=== PATIENT | female | born 1990 | race Caucasian/White ===

== ENCOUNTER → 2024-02-02 07:21 | Outpatient (REF) | payer BC, SELFPAY | LOC: PNTC 07:21 | PROVIDERS: ATTENDING PHYSICIAN Obstetrics & Gynecology | DX: O09.819 Supervision of pregnancy resulting from assisted reproductive technology, unspecified trimester (principal) | CPT/HCPCS: 76811 ==

== ENCOUNTER → 2024-02-16 10:27 | Outpatient (REF) | payer BC, SELFPAY | LOC: PNTC 10:27 | PROVIDERS: ATTENDING PHYSICIAN Obstetrics & Gynecology | DX: O99.210 Obesity complicating pregnancy, unspecified trimester (principal); O09.819 Supervision of pregnancy resulting from assisted reproductive technology, unspecified trimester; O35.5XX0 Maternal care for (suspected) damage to fetus by drugs, not applicable or unspecified | CPT/HCPCS: 76815 ==

== ENCOUNTER → 2024-02-24 09:40 | Outpatient (REF) | payer BC, SELFPAY ==
[2024-02-24 11:47] LABS: % Basophils 0.4 % (0-2); % Eosinophils 0.9 % (0-6); % Immature Granulocytes 0.3 % (0-0.5); % Lymphocytes 21.5 % (20.5-51.1); % Monocytes 3.6 % (1.7-9.3); % Neutrophils 73.3 % (42.2-75.2); Absolute Eosinophils 0.1 10^3/uL (0-0.7); Absolute Lymphocytes 2.1 10^3/uL (1.2-3.4); Absolute Monocytes 0.4 10^3/uL (0.1-0.6); Absolute Neutrophils 7.1 10^3/uL (1.4-6.5); Hematocrit 35.1 % (37.0-47.0); Mean Corp Hgb Conc. 34.2 g/dL (33.0-37.0); Mean Corpuscular Hgb 29.6 pg (27.0-31.0); Mean Corpuscular Volume 86.5 fL (81.0-99.0); Mean Platelet Volume 11.4 fL (7.4-10.4); Nucleated Red Blood Cells % 0 %; Platelet Count 220 10^3/uL (130-400); Red Blood Cell Count 4.06 10^6/uL (4.20-5.40); Red Cell Dist. Width 12.8 % (11.5-14.5); White Blood Cell Count 9.7 10^3/uL (4.8-10.8)
[2024-02-24 11:58] LABS: ALT (SGPT) 12 U/L (0-35); AST (SGOT) 18 U/L (14-36); Albumin 3.4 g/dl (3.5-5.0); Alkaline Phosphatase 79 U/L (38-126); Blood Urea Nitrogen 8 mg/dl (7-17); Calcium 9.4 mg/dl (8.4-10.2); Carbon Dioxide 23 mmol/L (22-30); Chloride 103 mmol/L (98-107); Glucose 106 mg/dl (70-99); HDL Cholesterol 93 mg/dl; LDL Cholesterol, Calculated 93 mg/dl; Sodium 133 mmol/L (135-145); Total Bilirubin 0.3 mg/dl (0.2-1.3); Total Cholesterol 218 mg/dl (50-199); Total Protein 6.1 g/dl (6.3-8.2); Triglyceride 161 mg/dl (10-149); Very Low Density Lipoprotein 32 mg/dl (0-30); eGFR > 60.00
[2024-02-24 12:24] LABS: Rubella Negative
[2024-02-24 12:28] LABS: Hepatitis B Surface Antigen Negative (Negative); TSH Reflex To Free T4 0.58 uIU/ml (0.47-4.68)
[2024-02-24 12:45] LABS: Hepatitis C Antibody Negative (Negative)
[2024-02-24 16:40] LABS: Syphilis/T. pallidum Ab Reflex Negative (Negative)
[2024-02-24 16:41] LABS: HIV Combo Negative (Negative)
== END ==
LOC: HWLAB 09:40
PROVIDERS: ATTENDING PHYSICIAN Obstetrics & Gynecology; FAMILY PHYSICIAN Physician Assistant
DX: Z34.90 Encounter for supervision of normal pregnancy, unspecified, unspecified trimester (principal); Z3A.18 18 weeks gestation of pregnancy; Z13.29 Encounter for screening for other suspected endocrine disorder; E66.09 Other obesity due to excess calories; F41.1 Generalized anxiety disorder; R73.01 Impaired fasting glucose
CPT/HCPCS: 36415; 80053; 80061; 84443; 85025; 86762; 86780; 86803; 87086; 87340; 87389

== ENCOUNTER → 2024-03-22 09:39 | Outpatient (REF) | payer BC, SELFPAY | LOC: CPAP 09:39 | PROVIDERS: ATTENDING PHYSICIAN Obstetrics & Gynecology | DX: Z34.90 Encounter for supervision of normal pregnancy, unspecified, unspecified trimester (principal) | CPT/HCPCS: 87491; 87591 ==

== ENCOUNTER → 2024-03-23 09:46 | Outpatient (REF) | payer BC, SELFPAY ==
[2024-03-23 12:14] LABS: 1 Hour after 50gm 91 mg/dl
== END ==
LOC: HWLAB 09:46
PROVIDERS: ATTENDING PHYSICIAN Obstetrics & Gynecology; FAMILY PHYSICIAN Physician Assistant Medical
DX: Z34.90 Encounter for supervision of normal pregnancy, unspecified, unspecified trimester (principal)
CPT/HCPCS: 36415; 82950

== ENCOUNTER → 2024-03-30 10:28 | Outpatient (REF) | payer BC, SELFPAY | LOC: PNTC 10:28 | PROVIDERS: ATTENDING PHYSICIAN Obstetrics & Gynecology | DX: O99.210 Obesity complicating pregnancy, unspecified trimester (principal) | CPT/HCPCS: 36415; 76816; 86850; 86900; 86901; J2790 ==

== ENCOUNTER → 2024-04-26 08:19 | Outpatient (REF) | payer BC, SELFPAY | LOC: PNTC 08:19 | PROVIDERS: ATTENDING PHYSICIAN Obstetrics & Gynecology | DX: O99.212 Obesity complicating pregnancy, second trimester (principal); O09.819 Supervision of pregnancy resulting from assisted reproductive technology, unspecified trimester; O99.320 Drug use complicating pregnancy, unspecified trimester | CPT/HCPCS: 76816 ==

== ENCOUNTER → 2024-05-10 08:55 | Outpatient (REF) | payer BC, SELFPAY | LOC: PNTC 08:55 | PROVIDERS: ATTENDING PHYSICIAN Obstetrics & Gynecology | DX: O99.210 Obesity complicating pregnancy, unspecified trimester (principal) | CPT/HCPCS: 59025; 76815 ==

== ENCOUNTER → 2024-05-17 07:59 | Outpatient (REF) | payer BC, SELFPAY | LOC: PNTC 07:59 | PROVIDERS: ATTENDING PHYSICIAN Obstetrics & Gynecology | DX: O99.210 Obesity complicating pregnancy, unspecified trimester (principal) | CPT/HCPCS: 59025; 76815 ==

== ENCOUNTER → 2024-05-24 08:31 | Outpatient (REF) | payer BC, SELFPAY | LOC: PNTC 08:31 | PROVIDERS: ATTENDING PHYSICIAN Obstetrics & Gynecology | DX: O09.529 Supervision of elderly multigravida, unspecified trimester (principal); O09.819 Supervision of pregnancy resulting from assisted reproductive technology, unspecified trimester; O35.5XX0 Maternal care for (suspected) damage to fetus by drugs, not applicable or unspecified | CPT/HCPCS: 59025; 76816 ==

== ENCOUNTER → 2024-05-31 08:21 | Outpatient (REF) | payer BC, SELFPAY | LOC: PNTC 08:21 | PROVIDERS: ATTENDING PHYSICIAN Obstetrics & Gynecology | DX: O99.210 Obesity complicating pregnancy, unspecified trimester (principal); O09.819 Supervision of pregnancy resulting from assisted reproductive technology, unspecified trimester; O99.320 Drug use complicating pregnancy, unspecified trimester | CPT/HCPCS: 59025; 76815 ==

== ENCOUNTER → 2024-06-07 08:22 | Outpatient (REF) | payer BC, SELFPAY | LOC: PNTC 08:22 | PROVIDERS: ATTENDING PHYSICIAN Obstetrics & Gynecology | DX: O99.210 Obesity complicating pregnancy, unspecified trimester (principal); O09.819 Supervision of pregnancy resulting from assisted reproductive technology, unspecified trimester; O99.320 Drug use complicating pregnancy, unspecified trimester | CPT/HCPCS: 59025; 76815 ==

== ENCOUNTER 2024-06-14 07:11 | Inpatient (IN) | payer BC, SELFPAY ==
[2024-06-14 07:14] VITALS: BP 121/59; BMI 45.4
[2024-06-14] MEDS: ANCEF 10 IV (08:16)
[2024-06-14] MEDS: LR 1000 IV ×2 (08:16→22:06)
[2024-06-14 08:28] LABS: % Basophils 0.2 % (0-2); % Eosinophils 0.4 % (0-6); % Immature Granulocytes 0.3 % (0-0.5); % Lymphocytes 20.5 % (20.5-51.1); % Monocytes 4.5 % (1.7-9.3); % Neutrophils 74.1 % (42.2-75.2); Absolute Monocytes 0.4 10^3/uL (0.1-0.6); Hematocrit 32.5 % (37.0-47.0); Hemoglobin 11.4 g/dL (12.0-16.0); Mean Corp Hgb Conc. 35.1 g/dL (33.0-37.0); Mean Corpuscular Hgb 28.7 pg (27.0-31.0); Mean Corpuscular Volume 81.9 fL (81.0-99.0); Mean Platelet Volume 12.5 fL (7.4-10.4); Nucleated Red Blood Cells % 0 %; Platelet Count 166 10^3/uL (130-400); Red Blood Cell Count 3.97 10^6/uL (4.20-5.40); Red Cell Dist. Width 13.1 % (11.5-14.5); White Blood Cell Count 9.5 10^3/uL (4.8-10.8)
[2024-06-14] MEDS: PITOCIN 30 UNITS/NSS 500 ML IV (09:58)
[2024-06-14] MEDS: TUMS 2 TABLET PO ×2 (15:54→20:34)
[2024-06-14] MEDS: ANCEF 5 IV (16:00)
[2024-06-14] MEDS: SUBLIMAZE 100 MCG EPIDURAL (21:33)
[2024-06-14] MEDS: FENTANYL/BUPIVACAINE 100 EPIDURAL (21:33)
[2024-06-14] MEDS: ZOLOFT 50 MG PO (23:21)
[2024-06-15] MEDS: ANCEF 5 IV ×3 (00:04→15:59)
[2024-06-15] MEDS: TUMS 2 TABLET PO ×2 (00:15→15:24)
[2024-06-15] MEDS: LR 1000 IV ×2 (04:10→15:24)
[2024-06-15] MEDS: FENTANYL/BUPIVACAINE 100 EPIDURAL ×3 (05:28→20:08)
[2024-06-15] MEDS: METHERGINE INJECTION 0.2 MG IM (21:23)
[2024-06-15] MEDS: ZOLOFT 50 MG PO (22:30)
[2024-06-16] MEDS: MOTRIN 600 MG PO ×4 (00:35→20:50)
[2024-06-16 05:46] LABS: Hematocrit 27.7 % (37.0-47.0); Hemoglobin 9.7 g/dL (12.0-16.0)
[2024-06-16] MEDS: TYLENOL 650 MG PO ×3 (09:23→20:51)
[2024-06-16] MEDS: PRENATAL PLUS 1 TABLET PO (09:29)
[2024-06-16] MEDS: SENOKOT-S 1 TABLET PO (09:29)
[2024-06-16] MEDS: HYPERRHO S-D 1500 UNIT IM (15:09)
[2024-06-16] MEDS: ZOLOFT 50 MG PO (20:50)
[2024-06-17] MEDS: TYLENOL 650 MG PO (05:15)
[2024-06-17] MEDS: MOTRIN 600 MG PO (05:15)
[2024-06-17] MEDS: FEOSOL 325 MG PO (08:00)
[2024-06-17] MEDS: PRENATAL PLUS 1 TABLET PO (08:00)
[2024-06-18 12:09] LABS: Syphilis/T. pallidum Ab Reflex Negative (Negative)
== END 2024-06-17 10:19 | disposition home or self-care (01) | DRG 807 ==
LOC: LDRP 07:11
PROVIDERS: Obstetrics & Gynecology; ADMITTING PHYSICIAN Obstetrics & Gynecology; FAMILY PHYSICIAN Physician Assistant Medical
PROC: 3E033VJ Introduction of Other Hormone into Peripheral Vein, Percutaneous Approach (ICD-10-PCS; 2024-06-14)
PROC: 0UQMXZZ Repair Vulva, External Approach (ICD-10-PCS; 2024-06-14)
PROC: 0HQ9XZZ Repair Perineum Skin, External Approach (ICD-10-PCS; 2024-06-14)
PROC: 10H073Z Insertion of Monitoring Electrode into Products of Conception, Via Natural or Artificial Opening (ICD-10-PCS; 2024-06-14)
PROC: 10E0XZZ Delivery of Products of Conception, External Approach (ICD-10-PCS; 2024-06-14)
DX: O70.0 First degree perineal laceration during delivery (principal); Z37.0 Single live birth; O99.824 Streptococcus B carrier state complicating childbirth; O99.02 Anemia complicating childbirth; Z3A.39 39 weeks gestation of pregnancy; Z88.0 Allergy status to penicillin
CPT/HCPCS: 88307; 85014; 85018; 85025; 85461; 86780; 86850; 86900; 86901; J2790

== ENCOUNTER → 2024-06-22 12:04 | Outpatient (REF) | payer BC, SELFPAY ==
[2024-06-22 15:38] LABS: Urine Albumin Negative (Neg - Trace); Urine Bilirubin Negative (Negative); Urine Character Clear (Clear); Urine Color Yellow; Urine Glucose Negative (Negative); Urine Ketone Negative (Negative); Urine Leukocyte 1+ (Negative); Urine Nitrite Negative (Negative); Urine Occult Blood 4+ (Negative); Urine Urobilinogen Negative (Neg - 1+)
[2024-06-22 15:51] LABS: Urine Mucus Many
[2024-06-22 15:52] LABS: Urine Bacteria Many (Negative)
== END ==
LOC: HWLAB 12:04
PROVIDERS: ATTENDING PHYSICIAN Obstetrics & Gynecology; FAMILY PHYSICIAN Physician Assistant Medical
DX: N30.00 Acute cystitis without hematuria (principal)
CPT/HCPCS: 36415; 81003; 81015; 87086